=== PATIENT | female | born 1945 | race Caucasian/White ===

== ENCOUNTER 2016-09-13 15:17 | Emergency (ER) | payer MEDICARE, OTHER ==
[2016-09-13 16:04] LABS: BASOPHILS 0.8 % (0.0-2.0); EOSINOPHILS 2.6 % (0-7); HEMATOCRIT 24.7 % (36.0-48.0); HEMOGLOBIN 7.7 g/dL (12-16); IMMATURE GRANULOCYTES 1.4 % (0-5); LYMPHOCYTES 30.9 % (15-50); MCH 27.1 pg (26.0-34.0); MCHC 31.2 g/dL (31.0-37.0); MEAN PLATELET VOLUME 9.9 fL (7.4-10.4); MONOCYTES 4.6 % (2-11); NEUTROPHILS 59.7 % (40-80); PLATELET COUNT 168 10x3/uL (130-400); RBC 2.84 10x6/uL (4.00-5.40); RDW 18.8 % (11.5-14.5); WBC 7.6 10x3/uL (4.8-10.8)
[2016-09-13 16:43] LABS: ALBUMIN 3.3 g/dL (3.4-5.0); ALKALINE PHOSPHATASE 210 U/L (46-116); ALT (SGPT) 16 U/L (10-68); CALC OSMOLALITY 289 mosm/kg (275-300); CALCIUM 9.4 mg/dL (8.5-10.1); CARBON DIOXIDE 22.7 mmol/L (21.0-32.0); CHLORIDE - SERUM 108 mmol/L (98-107); CREATININE - SERUM 1.4 mg/dL (0.6-1.3); GLUCOSE 95 mg/dL (74-106); POTASSIUM - SERUM 4.4 mmol/L (3.5-5.1); SODIUM 142 mmol/L (136-145); UREA NITROGEN 32 mg/dL (7-18); eGFR NON AFRICAN AMERICAN 39 mL/min (90-120)
[2016-09-13 16:45] LABS: CREATINE KINASE 47 UL (21-215)
[2016-09-13 16:52] LABS: TROPONIN-I < 0.017 ng/mL (0.000-0.060)
== END 2016-09-13 19:05 | disposition home or self-care (01) ==
LOC: D.ER 15:17
PROVIDERS: Emergency Medicine
DX: M19.012 Primary osteoarthritis, left shoulder (principal); C50.919 Malignant neoplasm of unspecified site of unspecified female breast; I10 Essential (primary) hypertension